=== PATIENT | male | born 1945 | race Caucasian/White ===

== ENCOUNTER 2019-07-06 08:47 | Day surgery (SDC) | payer MEDICARE, BC ==
[~2019-07-06] VITALS: Ht 188 cm; Wt 100.0 kg
[~2019-07-06 08:47] MED LIST: ASPI81CH PO; ATEN50 PO; ATOR20 PO; Coumadin5 MG PO; FINA5 PO; LISI20 PO; TAMS.4ER PO
--- NOTE | 2019-07-06 10:28 | NUR ---
07/06/19 1028 Yulissa Arauz SIMETHICONE USED DURING PROCEDURE.
== END 2019-07-06 11:36 | disposition home or self-care (01) ==
LOC: ORSCSDS 08:47
PROVIDERS: Internal Medicine Gastroenterology
PROC: 0DBN8ZX Excision of Sigmoid Colon, Via Natural or Artificial Opening Endoscopic, Diagnostic (ICD-10-PCS; principal; 2019-07-06 10:15)
DX: Z12.11 Encounter for screening for malignant neoplasm of colon (principal); Z86.010 Personal history of colon polyps; D12.5 Benign neoplasm of sigmoid colon; K64.4 Residual hemorrhoidal skin tags; K57.30 Diverticulosis of large intestine without perforation or abscess without bleeding; I10 Essential (primary) hypertension; Z80.0 Family history of malignant neoplasm of digestive organs; Z79.82 Long term (current) use of aspirin; Z79.899 Other long term (current) drug therapy
CPT/HCPCS: 88305; J0461; J2405; J2704; J7120

== ENCOUNTER 2024-12-13 10:44 | Day surgery (SDC) | payer MEDICARE, BC ==
[~2024-12-13] VITALS: Ht 188 cm; Wt 91.3 kg
[~2024-12-13 10:44] MED LIST changes: +ELIQUIS5 M2 PO; +FLECAINIDE ACE150 MG PO; +PRESERVISION A1 EAC2 PO
[2024-12-13] MEDS ORDERED: CALC.25 (11:28)
[2024-12-13 14:20] VITALS: BP 135/73
== END 2024-12-13 13:58 | disposition home or self-care (01) ==
LOC: ORSCSDS 10:44
PROVIDERS: Internal Medicine Gastroenterology
PROC: 0DJD8ZZ Inspection of Lower Intestinal Tract, Via Natural or Artificial Opening Endoscopic (ICD-10-PCS; principal; 2024-12-13 12:30)
DX: Z12.11 Encounter for screening for malignant neoplasm of colon (principal); Z86.0101 Personal history of adenomatous and serrated colon polyps; Z80.0 Family history of malignant neoplasm of digestive organs; K57.30 Diverticulosis of large intestine without perforation or abscess without bleeding; Z79.01 Long term (current) use of anticoagulants; Z79.82 Long term (current) use of aspirin; Z79.899 Other long term (current) drug therapy
CPT/HCPCS: J2704; J7120

== ENCOUNTER → 2025-02-06 | Outpatient (CLI) | payer MEDICARE, BC ==
[~2025-02-06] MED LIST changes: +CALC.25
== END | disposition home or self-care (01) ==
LOC: LAB SHORT 08:06 → LAB 08:06 → LAB FUT 02-04 07:30
DX: N20.2 Calculus of kidney with calculus of ureter (principal); R97.20 Elevated prostate specific antigen [PSA]
CPT/HCPCS: 81050